=== PATIENT | female | born 1980 ===

== ENCOUNTER 2016-12-13 19:37 | Emergency (ER) | payer OTHER ==
[2016-12-13 19:52] VITALS: BP 117/78; PULSE 72; RESP 20; TEMP 98.2; O2SAT 100
--- NOTE | 2016-12-13 20:04 | C.PDOC ---
History Of Present Illness 36 year old female complains of urinary frequency for one week and dysuria since yesterday. She took Amoxil which she had at home without relief. She denies fever, flank pain, vomiting, hematuria, discharge. Time Seen by Provider: 12/13/16 19:52 Chief Complaint (Nursing): Female Genitourinary History Per: Patient History/Exam Limitations: no limitations Onset/Duration Of Symptoms: Days Current Symptoms Are (Timing): Still Present Quality Of Discomfort: Unable To Describe Associated Symptoms: Urinary Symptoms ((+) Frequency, Dysuria. (-) Hematuria). denies: Fever, Nausea, Vomiting Alleviating Factors: None Recent travel outside of the [place]: No Abnormal Vaginal Bleeding: No Past Medical History Reviewed: Historical Data, Nursing Documentation, Vital Signs Vital Signs: Last Vital Signs Temp 98.2 F 12/13/16 19:48 Pulse 72 12/13/16 19:48 Resp 20 12/13/16 19:48 BP 117/78 12/13/16 19:48 Pulse Ox 100 12/13/16 20:35 - Medical History PMH: No Chronic Diseases Surgical History: No Surg Hx Family History: States: Unknown Family Hx - Social History Hx Alcohol Use: No Hx Substance Use: No Review Of Systems Constitutional: Negative for: Fever, Chills Cardiovascular: Negative for: Chest Pain, Palpitations Respiratory: Negative for: Cough, Shortness of Breath Gastrointestinal: Negative for: Vomiting Genitourinary: Positive for: Dysuria, Frequency. Negative for: Hematuria, Vaginal Discharge, Vaginal Bleeding Skin: Negative for: Rash Neurological: Negative for: Weakness, Numbness, Headache Physical Exam - Physical Exam Appears: Non-toxic, No Acute Distress Skin: Normal Color, Warm, Dry Head: Atraumatic, Normacephalic Eye(s): bilateral: Normal Inspection Oral Mucosa: Moist Neck: Normal ROM Chest: Symmetrical Cardiovascular: Rhythm Regular Respiratory: Normal Breath Sounds, No Rales, No Rhonchi, No Wheezing Gastrointestinal/Abdominal: Bowel Sounds, Soft, No Tenderness, No Mass, No Distention, No Guarding Back: Normal Inspection, No CVA Tenderness Extremity: Bilateral: Atraumatic, Normal Color And Temperature, Normal ROM Neurological/Psych: Oriented x3, Normal Speech Gait: Steady ED Course And Treatment O2 Sat by Pulse Oximetry: 100 (Room air) Pulse Ox Interpretation: Normal Medical Decision Making Medical Decision Making: Impression: urinary symptoms Plan: * UA * [facility] Progress: UA shows trace LE. Will treat since patient is symptomatic. Cipro PO ordered. Patient advised to take antibiotics and to follow up with PCP or clinic. Disposition Counseled Patient/Family Regarding: Studies Performed, Diagnosis, Need For Followup, Rx Given - [facility]position [facility] Disposition: HOME/ ROUTINE Disposition Time: 21:15 Condition: GOOD Additional Instructions: [place] el antibitico dos veces al da. siga con garcia mdico o clnica primaria. Tylenol o Motrin alternando cada 4-6 horas para la fiebre 100.4F o ms alto. Descanse y collins muchos lquidos Prescriptions: Ciprofloxacin [Cipro] 1 tab PO BID #10 tab Instructions: Urinary Tract Infection in Women (DC) Forms: [employer] (Vietnamese) Print Language: SALVADOREAN - POA Present On Arrival: None - Clinical Impression Clinical Impression: UTI (urinary tract infection) - Scribe Statement The provider has reviewed the documentation as recorded by the Scribe Corey Peterson All medical record entries made by the Scribe were at my direction and personally dictated by me. I have reviewed the chart and agree that the record accurately reflects my personal performance of the history, physical exam, medical decision making, and the department course for this patient. I have also personally directed, reviewed, and agree with the discharge instructions and disposition.
[2016-12-13 20:49] LABS: RBC URINE < 1 /hpf (0-3); URINE BACTERIA RARE (<OCC); URINE BILIRUBIN NEGATIVE (NEGATIVE); URINE BLOOD NEGATIVE (NEGATIVE); URINE COLOR Straw (YELLOW); URINE GLUCOSE (UA) NORMAL (Normal); URINE KETONE NEGATIVE (NEGATIVE); URINE LEUKOCYTE ESTERASE TRACE Leu/uL (Negative); URINE PROTEIN NEGATIVE (NEGATIVE); URINE UROBILINOGEN NORMAL mg/dL (0.2-1.0); WBC URINE 6 /hpf (0-5)
== END 2016-12-13 21:36 | disposition home or self-care (01) ==
LOC: C.ER 19:37
DX: N39.0 Urinary tract infection, site not specified (principal)

== ENCOUNTER 2018-04-12 19:57 | Emergency (ER) | payer SELFPAY ==
[2018-04-12 20:16] VITALS: BP 114/79; PULSE 92; RESP 20; TEMP 97.3; O2SAT 99
--- NOTE | 2018-04-12 20:48 | C.PDOC ---
History Of Present Illness 37 year old female presents to the ER with a complaint of nasal congestion for the past 3 days now with frontal headache and facial pain. He has been using nasal spray with no relief. Denies fever or chills. Time Seen by Provider: 04/12/18 20:25 Chief Complaint (Nursing): Cough, Cold, Congestion History Per: Patient History/Exam Limitations: None Onset/Duration Of Symptoms: Days (3) Current Symptoms Are (Timing): Still Present Symptoms Have Been: Continuous Past Medical History Reviewed: Historical Data, Nursing Documentation, Vital Signs Vital Signs: Last Vital Signs Temp 97.3 F L 04/12/18 20:10 Pulse 92 H 04/12/18 20:10 Resp 20 04/12/18 20:10 BP 114/79 04/12/18 20:10 Pulse Ox 99 04/12/18 20:10 Family History: States: Unknown Family Hx - Social History Hx Alcohol Use: No Hx Substance Use: No Review Of Systems Constitutional: Negative for: Fever, Chills ENT: Positive for: Nose Congestion. Negative for: Throat Pain Respiratory: Negative for: Cough Neurological: Positive for: Headache Physical Exam - Physical Exam Appears: Non-toxic Skin: Normal Color, Warm, Dry Head: Atraumatic, Normacephalic, Tenderness (Parasinus), Other (Enlarged turbinates) Eye(s): bilateral: Normal Inspection Ear(s): Bilateral: Normal Nose: Other (Enlarged turbinates) Oral Mucosa: Moist Throat: Normal, No Erythema, No Exudate Neck: Normal, No Midline Cervical Tenderness, No Paracervical Tenderness, Supple Respiratory: Normal Breath Sounds, No Wheezing Neurological/Psych: Oriented x3, Normal Speech Gait: Steady ED Course And Treatment O2 Sat by Pulse Oximetry: 99 (Room air) Pulse Ox Interpretation: Normal Progress Note: Benadryl and motrin administered. Patient is resting comfortably in the ER in no acute distress, vitals are stable, will discharge home with Rx and instructions to follow up with PMD or return if symptoms worsen. Disposition Counseled Patient/Family Regarding: Diagnosis, Need For Followup - Disposition Referrals: [facility] [Outside] Disposition: HOME/ ROUTINE Disposition Time: 20:43 Condition: STABLE Additional Instructions: Take medications as directed Follow up in clinic Return to ER if worse Prescriptions: Cetirizine HCl [Zyrtec] 10 mg PO DAILY #14 capsule Fluticasone Propionate [Flonase] 1 actuation NS BID #1 bottle Ibuprofen [Motrin] 600 mg PO Q6H #24 tab Instructions: Seasonal Allergies (DC) Forms: Gen Discharge Inst Uzbek, [employer] (Divehi), Work Excuse Print Language: SETSWANA - Clinical Impression Clinical Impression: Allergic rhinitis, Sinusitis - PA / INVENTORY CONTROL COORDINATOR / Resident Statement MD/DO has reviewed & agrees with the documentation as recorded. - Scribe Statement The provider has reviewed the documentation as recorded by the Scribe Corey Peterson All medical record entries made by the Nievesibcecy were at my direction and personally dictated by me. I have reviewed the chart and agree that the record accurately reflects my personal performance of the history, physical exam, medical decision making, and the department course for this patient. I have also personally directed, reviewed, and agree with the discharge instructions and disposition.
== END 2018-04-12 20:57 | disposition home or self-care (01) ==
LOC: C.ER 19:57
DX: J30.9 Allergic rhinitis, unspecified (principal); J32.9 Chronic sinusitis, unspecified